=== PATIENT | female | born 1960 | race Two or more races ===

== ENCOUNTER → 2019-06-15 | Outpatient (CLI) | payer OTHER ==
--- NOTE | 2019-06-15 20:22 | RAD ---
EXAM: PET W CT SKULL TO MIDTHIGH EXAM DATE: 06/15/2019 INDICATION: Right lower lobe pulmonary nodule RADIOPHARMACEUTICAL: 15.5 mCi of F-18 Fluorodeoxyglucose (FDG) I.V. via the right forearm. TECHNIQUE: Patient weight: 192 pounds. Following at least four-hour fasting, the patient's blood glucose was 111 mg/dl. Approximately 1 hour after administration of FDG, overlapping emission scanning was performed from the orbital meatal line through the pelvis. A low-dose CT was performed for attenuation correction purposes and anatomic localization. Fused images of PET and CT were reviewed. Any standardized uptake values (SUV) reported are maximum values within a volume region of interest, expressed in gm/ml. COMPARISON: No relevant comparisons currently available. FINDINGS: PET: Right lower lobe pulmonary nodule shows FDG uptake to max SUV of 1.5. This compares with a background mediastinal activity of 2.63. Uptake in the terminal ileum along a 7 cm length from the ileocecal valve shows uptake to max SUV of 8.1.. No abnormal uptake in the bones. CT: An oval 1.6 cm nodule in the superior segment right lower lobe is present with an anterior satellite nodule measuring 3 mm. No additional lung nodules or masses identified with respiratory motion artifact present. No hilar or mediastinal adenopathy identified on CT. No pleural effusion. Abdomen shows a fatty liver and small, layering calcified stones in the gallbladder. No abdominal adenopathy. Adrenals are unremarkable. No acute or aggressive appearing osseous lesions. IMPRESSION: 1. Patient's right lower lobe pulmonary nodule measures 1.6 cm and shows no significant FDG uptake. 2. Focal uptake in the terminal ileum is nonspecific. Correlate with symptoms and consider clinical follow-up as warranted. Electronically signed by: Sam Torrez MD (06/15/2019 8:19 PM) [id number]
== END | disposition home or self-care (01) ==
LOC: PETSC 10:44
PROVIDERS: ATTEND Internal Medicine Pulmonary Disease
DX: R91.1 Solitary pulmonary nodule (principal); K76.0 Fatty (change of) liver, not elsewhere classified; N21.0 Calculus in bladder; K82.8 Other specified diseases of gallbladder
CPT/HCPCS: 78815; A9552